=== PATIENT | male | born 1985 | race Caucasian/White ===

== ENCOUNTER 2023-06-24 23:39 | Emergency (ER) | payer OTHER, SELFPAY ==
[2023-06-24 23:42] VITALS: BP 144/78; PULSE 88; RESP 14; TEMP 36.3; O2SAT 98
--- NOTE | 2023-06-25 02:02 | ED.EYEPROB ---
HPI - Eye Problem General Chief complaint: Eye Problems Stated complaint: possible piece of plastic in L eye Time Seen by Provider: 06/25/23 01:36 History of Present Illness HPI Narrative: 37-year-old male presenting to the emergency department for evaluation of left eye pain. Patient states he was smashing a air conditioning unit with a sledgehammer when he feels he got plastic in his eye. Patient does have a foreign body sensation in his left eye. Patient's tetanus is up-to-date Related Data Allergies Allergy/AdvReac Type Severity Reaction Status Date / Time No Known Allergies Allergy Verified 06/24/23 23:41 Review of Systems Review of Systems: All systems reviewed & are unremarkable except as noted in HPI and below Exam Narrative: APPEARANCE: Well appearing, no pain, no distress, well-nourished. HEAD: normocephalic, atraumatic. EYES: PERRLA/EOMI, conjunctivae clear. NOSE: Normal no drainage EARS: Foreign body and left lateral cornea THROAT: Pharynx clear, no exudate. NECK: Supple. No adenopathy, no masses. RESPIRATORY: Airway patent, respirations nonlabored. Clear to auscultation bilaterally, no rales, rhonchi, wheezing. CARDIOVASCULAR: Regular rate and rhythm without murmurs rubs or gallops. ABDOMINAL: Soft, nontender, nondistended, normal bowel sounds MUSCULOSKELETAL: Moves all extremities. Strength/ROM intact, No edema, No calf tenderness. NEURO: Alert. Cranial nerves II through XII intact. Grossly intact SKIN: Warm, dry. Normal Color Course Course Emergency Course: Metallic foreign body was removed and patient was encouraged to follow up with Ophthalmology for the residual rust ring Vital Signs Vital signs: Vital Signs Temperature 97.3 F L 06/24/23 23:42 Pulse Rate 88 06/24/23 23:42 Respiratory Rate 14 06/24/23 23:42 Blood Pressure 144/78 H 06/24/23 23:42 Pulse Oximetry 98 06/24/23 23:42 Oxygen Delivery Room Air 06/24/23 23:42 Temperature 97.3 F L 06/24/23 23:42 Pulse Rate 88 06/24/23 23:42 Respiratory Rate 14 06/24/23 23:42 Blood Pressure 144/78 H 06/24/23 23:42 Pulse Oximetry 98 06/24/23 23:42 Oxygen Delivery Room Air 06/24/23 23:42 Procedures FB Removal Eye Foreign Body #1: Time Out performed: Yes Location: eye (L) Topical anesthetic used: tetracaine Foreign body: metal Evidence of corneal penetration: No Technique: needle Procedure performed under: direct visualization with magnification and slit-lamp Post-procedure medication: ophthalmic antibiotic Patient tolerated procedure: well and no complications Complications: residual rust ring MDM - Eye Problem MDM Narrative Medical decision making narrative: 37-year-old male presenting to the emergency department for evaluation of a foreign body sensation in his left eye. Metallic foreign body was removed described the procedure note. Patient did have a residual rust ring. Patient was started on antibiotics in the emergency department. Patient's tetanus was up-to-date. Differential Diagnosis Differential diagnosis: Likely corneal abrasion, conjunctivitis, acute iritis, hyphema, periorbital cellulitis, subconjunctival hemorrhage, glaucoma, corneal ulcer and ruptured globe Discharge Plan Discharge Clinical Impression: Foreign body in eye, Corneal rust ring Patient Disposition: Home, Self-Care Condition: Stable Instructions: Antibiotic Form, Eye Foreign Body (ED) Additional Instructions: Antibiotic ointment as directed. The metallic foreign body was removed from your eye but have close follow-up with Ophthalmology to have the rust ring removed. If you have any worsening symptoms and please call or return to the emergency department. Prescriptions: New ofloxacin 0.3 % drops See Rx Instructions .ROUTE .COMPLEX Qty: 10 0RF Rx Instructions: put 1-2 drps into affected eye(s) every 2-4 h x 2 days, then 1-2 drps 4
[2023-06-25] MEDS: FLUORESCEIN SOD 1 MG/STRIP EACH EYE (02:57)
[2023-06-25] MEDS: TETRACAINE HCL 0.5% OPHTH SOLN 4 ML BTL 1 DROP EACH EYE (02:57)
[2023-06-25] MEDS: OFLOXACIN 0.3% OPHTH SOLN 5 ML BTL 1 DROP LEFT EYE (03:14)
--- NOTE | 2023-06-25 03:19 | PC.NURSE ---
Patient states he is UTD on tetanus as he had received it a couple of months ago.
== END 2023-06-25 03:24 | disposition home or self-care (01) ==
PROVIDERS: Emergency Provider Emergency Medicine
DX: T15.02XA Foreign body in cornea, left eye, initial encounter (principal); W44.8XXA Other foreign body entering into or through a natural orifice, initial encounter
CPT/HCPCS: 65220; 99283; A9270